=== PATIENT | male | born 1990 | race American Indian/Alaskan Native ===

== ENCOUNTER 2017-03-11 16:49 | Emergency (ER) | payer OTHER ==
[2017-03-11 20:23] VITALS: BP 121/66
[2017-03-11] MEDS ORDERED: MOTRIN PO ONE (20:29)
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
== END 2017-03-11 22:25 | disposition home or self-care (01) ==
LOC: ED 16:49
DX: S76.912A Strain of unspecified muscles, fascia and tendons at thigh level, left thigh, initial encounter (principal); S13.4XXA Sprain of ligaments of cervical spine, initial encounter; S16.1XXA Strain of muscle, fascia and tendon at neck level, initial encounter; J45.909 Unspecified asthma, uncomplicated; Z88.0 Allergy status to penicillin; V49.40XA Driver injured in collision with unspecified motor vehicles in traffic accident, initial encounter; Y93.89 Activity, other specified; Y92.89 Other specified places as the place of occurrence of the external cause; Y99.8 Other external cause status
CPT/HCPCS: 70450; 72125; 99283

== ENCOUNTER 2017-03-14 20:29 | Emergency (ER) | payer OTHER ==
[2017-03-15] MEDS ORDERED: DUONEB *Not for PRN Use IH ONE ×2 (02:53→02:59)
[2017-03-15] MEDS ORDERED: ULTRAM PO ONE (05:18)
[2017-03-15] MEDS ORDERED: FLEXERIL PO ONE (05:18)
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
[2017-03-15 06:40] VITALS: BP 118/70
--- NOTE | 2017-03-15 07:22 | XRay Report ---
LEFT KNEE, 2 views: History: Knee pain. The bony architecture is intact without evidence of fracture or dislocation. No significant soft tissue abnormality is seen. IMPRESSION: Normal left knee.
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
== END 2017-03-15 06:39 | disposition home or self-care (01) ==
LOC: ED 20:29
DX: S86.912D Strain of unspecified muscle(s) and tendon(s) at lower leg level, left leg, subsequent encounter (principal); J45.909 Unspecified asthma, uncomplicated; Y92.9 Unspecified place or not applicable
CPT/HCPCS: 99283